=== PATIENT | female | born 1985 | race Caucasian/White ===

== ENCOUNTER 2021-01-11 06:18 | Inpatient (IN) | payer SELFPAY ==
[2021-01-09 13:05] VITALS: BMI 30.2
[2021-01-11] MEDS ORDERED: LOCK ITEM NR ONE (06:29)
[2021-01-11] MEDS ORDERED: LIDOCAINE HCL 1%, 10 MG/ML (20ML VIAL) ONE (07:19)
[2021-01-11] MEDS ORDERED: EPINEPHrine/PF 1 MG/1 ML (1:1,000) AMPULE ONE (07:19)
[2021-01-11] MEDS ORDERED: BUPIVACAINE LIPOSOME/PF (EXPAREL) 266 MG/20 ML VIAL ONE (07:51)
[2021-01-11] MEDS ORDERED: SUCCINYLCHOLINE CHLORIDE 200 MG/10 ML SYRINGE ONE (08:01)
[2021-01-11] MEDS ORDERED: PROPOFOL 20 ML ONE ×5 (08:01)
[2021-01-11] MEDS ORDERED: ROCURONIUM BROMIDE 50 MG/5 ML SYRINGE ONE ×2 (08:01→09:22)
[2021-01-11] MEDS ORDERED: fentaNYL CITRATE 250 MCG/5 ML VIAL ONE (08:01)
[2021-01-11] MEDS ORDERED: MIDAZOLAM HCL 2 MG/2 ML SINGLE DOSE VIAL ONE (08:02)
[2021-01-11] MEDS ORDERED: SCOPOLAMINE HYDROBROMIDE 1 PATCH PATCH.TD72 ONE (08:05)
[2021-01-11] MEDS ORDERED: EPHEDRINE SULFATE/0.9% NACL/PF 50 MG/10 ML SYRINGE NR ONE (08:19)
[2021-01-11] MEDS ORDERED: ONDANSETRON 4 MG/2 ML VIAL ONE (09:50)
[2021-01-11] MEDS ORDERED: KETOROLAC TROMETHAMINE 30 MG/1 ML VIAL ONE (09:50)
[2021-01-11] MEDS ORDERED: ceFAZolin SODIUM 1 GM VIAL ONE (09:50)
[2021-01-11] MEDS ORDERED: DEXAMETHASONE SOD PHOSPHATE 4 MG/1 ML VIAL ONE (09:50)
[2021-01-11] MEDS ORDERED: SEVOFLURANE 250 ML BTL ONE (09:50)
[2021-01-11] MEDS ORDERED: LIDOCAINE HCL/PF 2% SDV 5ML VIAL ONE (09:50)
[2021-01-11] MEDS ORDERED: PATIENT'S OWN MEDICATION (NON-FORMULARY) (Omeprazole 20 MG Capsule.Dr) PO SCH (10:00)
[2021-01-11] MEDS ORDERED: PATIENT'S OWN MEDICATION (NON-FORMULARY) (Multivitamin [One-Daily Multi-Vitamin] 1 EACH Ta PO SCH (10:00)
[2021-01-11] MEDS ORDERED: ONDANSETRON 4 MG/2 ML VIAL IVPUSH PRN ×2 (14:51→14:57)
[2021-01-11] MEDS ORDERED: oxyCODONE HCL 5 MG TABLET PO PRN (14:57)
[2021-01-11] MEDS ORDERED: PROMETHAZINE HCL 25 MG/1 ML VIAL IVPUSH PRN (14:57)
[2021-01-11] MEDS ORDERED: LACTATED RINGERS SOLUTION 1,000 ML IV SCH (15:00)
[2021-01-11] MEDS ORDERED: diazePAM 5 MG TABLET PO PRN (15:01)
[2021-01-11] MEDS: CEFAZOLIN 1 GM/D5W 1 GM/50 ML BAG IVPB SCH ×2 (16:01→18:29)
[2021-01-11] MEDS: MULTIVITAMINS (DAILY MVI) TABLET (FP) PO SCH (16:05)
[2021-01-11] MEDS: PANTOPRAZOLE 40 MG TABLET PO SCH (16:05)
[2021-01-11] MEDS ORDERED: ENOXAPARIN NA (PORCINE) 40 MG/0.4 ML DISP.SYRIN SQ SCH (18:00)
[2021-01-11] MEDS: oxyCODONE HCL 5 MG TABLET PO PRN (21:20)
[2021-01-11] MEDS: ACETAMINOPHEN 325 MG TABLET (FP) PO PRN (21:21)
[2021-01-12] MEDS: CEFAZOLIN 1 GM/D5W 1 GM/50 ML BAG IVPB SCH ×3 (00:42→09:35)
[2021-01-12] MEDS: oxyCODONE HCL 5 MG TABLET PO PRN ×2 (01:28→06:30)
[2021-01-12] MEDS: ACETAMINOPHEN 325 MG TABLET (FP) PO PRN ×2 (01:32→06:30)
[2021-01-12] MEDS ORDERED: SODIUM CHLORIDE 1,000 ML IV ONE ×2 (09:15→15:45)
[2021-01-12] MEDS: ENOXAPARIN NA (PORCINE) 40 MG/0.4 ML DISP.SYRIN SQ SCH (09:34)
[2021-01-12] MEDS: LACTOBACILLUS ACIDOPHILUS 1 TABLET PO SCH (09:34)
[2021-01-12] MEDS: PANTOPRAZOLE 40 MG TABLET PO SCH (09:35)
[2021-01-12] MEDS: MULTIVITAMINS (DAILY MVI) TABLET (FP) PO SCH (09:35)
[2021-01-13] MEDS: ACETAMINOPHEN 325 MG TABLET (FP) PO PRN ×2 (02:29→09:07)
[2021-01-13 06:25] VITALS: BP 115/46; PULSE 83; TEMP 98.9
[2021-01-13] MEDS: ENOXAPARIN NA (PORCINE) 40 MG/0.4 ML DISP.SYRIN SQ SCH (09:07)
[2021-01-13] MEDS: PANTOPRAZOLE 40 MG TABLET PO SCH (09:08)
[2021-01-13] MEDS: LACTOBACILLUS ACIDOPHILUS 1 TABLET PO SCH (09:09)
[2021-01-13] MEDS: MULTIVITAMINS (DAILY MVI) TABLET (FP) PO SCH (09:10)
== END 2021-01-13 12:11 | disposition home or self-care (01) | DRG 951 ==
LOC: FASU 06:18 → FM/S 16:12 → FASU 01-12 06:18 → FM/S 01-12 06:18 → FASU 01-13 09:28 → FM/S 01-13 09:29 → UNDOADMIN 01-13 09:29
PROVIDERS: ADMIT Surgery Plastic and Reconstructive Surgery; ATTEND Surgery Plastic and Reconstructive Surgery
PROC: 0JBD0ZZ Excision of Right Upper Arm Subcutaneous Tissue and Fascia, Open Approach (ICD-10-PCS; 2021-01-11)
PROC: 0JBF0ZZ Excision of Left Upper Arm Subcutaneous Tissue and Fascia, Open Approach (ICD-10-PCS; principal; 2021-01-11 08:41)
PROC: 0W0F0ZZ Alteration of Abdominal Wall, Open Approach (ICD-10-PCS; 2021-01-11 08:41)
PROC: 0H0V0ZZ Alteration of Bilateral Breast, Open Approach (ICD-10-PCS; 2021-01-11 08:41)
PROC: 0J083ZZ Alteration of Abdomen Subcutaneous Tissue and Fascia, Percutaneous Approach (ICD-10-PCS; 2021-01-11 08:41)
DX: I95.81 Postprocedural hypotension (principal); N64.81 Ptosis of breast; M62.08 Separation of muscle (nontraumatic), other site; E88.1 Lipodystrophy, not elsewhere classified; Z41.1 Encounter for cosmetic surgery; E66.01 Morbid (severe) obesity due to excess calories; Z68.30 Body mass index [BMI] 30.0-30.9, adult
CPT/HCPCS: 81025; 94760